=== PATIENT | male | born 1950 | race Caucasian/White ===

== ENCOUNTER 2019-05-17 07:53 | Outpatient (CLI) | payer MEDICARE ==
--- NOTE | 2019-05-17 09:53 | CT ---
LOW DOSE CT CHEST WITHOUT IV CONTRAST FOR LUNG CANCER SCREENING: HISTORY: Personal history of tobacco use. Shortness of breath. Atrial fibrillation. FINDINGS: Absence of IV contrast reduces the sensitivity of the exam, particularly for elevation of mediastinal , hilar and vascular structures. There are vascular calcifications without evidence of aneurysmal dilatation of the thoracic aorta. No pleural or pericardial effusions are seen. There are degenerative changes of the spine. A punctate calcified nodule is seen in the left lower lobe (image 163, series 2). No calcifie d nodules are seen. IMPRESSION: Lung-RADS category 2 - benign. RECOMMENDATIONS: Follow-up LDCT is recommended in 12 months. POS: OFF
== END 2019-05-17 07:54 | disposition home or self-care (01) ==
LOC: CT 07:53
PROVIDERS: ATTEND Family Medicine
DX: Z87.891 Personal history of nicotine dependence (principal); J44.9 Chronic obstructive pulmonary disease, unspecified
CPT/HCPCS: G0297

== ENCOUNTER 2020-09-04 09:59 | Outpatient (CLI) | payer MEDICARE ==
--- NOTE | 2020-09-04 10:28 | CT ---
EXAM: CT chest without contrast PROVIDED CLINICAL HISTORY: Personal history of nicotine dependence, low dose screening COMPARISON: 05/17/2019 FINDINGS: The heart, pericardium and great vessels are suboptimally evaluated in the absence of IV contrast mat erial. Vascular calcification including coronary calcium is demonstrated. There is no evidence for thoracic lymph node enlargement, with limitations due to lack of IV contrast material. The airway appears patent and of normal caliber proximally. There is stable subsegmental atelectatic change involving the lateral lingula. No concerning nodule is evident. No pleural fluid or pneumothorax apparent. The visualized portions of the upper abdomen demonstrate no significant abnormality. The osseous structures demonstrate no concerning lytic or blastic lesions. IMPRESSION: Lung RADS category 2-benign findings. Continue annual screening.
== END 2020-09-04 10:00 | disposition home or self-care (01) ==
LOC: BICCT 09:59
PROVIDERS: ATTEND Orthopaedic Surgery
DX: Z12.2 Encounter for screening for malignant neoplasm of respiratory organs (principal); Z87.891 Personal history of nicotine dependence
CPT/HCPCS: 71271

== ENCOUNTER 2020-10-31 12:30 | Inpatient (IN) | payer MEDICARE ==
[2020-10-31 13:57] LABS: Anion Gap 14 mmol/L (10-20); BUN (Urea Nitrogen) 16 mg/dL (8.4-25.7); Calc. Creatinine Clearance 0 mL/min (70-130); Calcium 9.6 mg/dL (7.8-10.44); Carbon Dioxide 29 mmol/L (23-31); Chloride 101 mmol/L (98-107); Glucose 103 mg/dL (80-115); Potassium 4.2 mmol/L (3.5-5.1); Sodium 140 mmol/L (136-145)
[2020-10-31 14:13] LABS: Hemoglobin 13.1 g/dL (13.5-17.5); Mean Corpuscular Hemoglobin 26.7 pg (27.0-33.0); Mean Corpuscular Volume 85.9 fl (81.2-95.1); Mean Platelet Volume 10.5 fl (7.4-10.4); Platelet Count 168 10x3/uL (150-450); RBC Distribution Width 15.9 % (11.5-14.5); Red Blood Cell (RBC) Count 4.91 10x6/uL (4.32-5.72); White Blood Cell (WBC) Count 8.7 10x3/uL (3.5-10.5)
[2020-10-31 15:01] LABS: INR-International Normal Ratio 1.1; PTT 57.7 sec (22.0-33.0); Prothrombin Time 11.5 sec (9.5-12.1)
[2020-11-01 13:08] LABS: SARS-CoV-2 PCR by NAA Not Detected (NotDetected)
[2020-11-05] MEDS ORDERED: Albumin 5% 500 ML ONE (06:25)
[2020-11-05] MEDS ORDERED: Norepinephrine 4 MG/4 ML VIAL ONE (06:35)
[2020-11-05] MEDS ORDERED: Nitroglycerin 50 MG/250 ML BOT 250 ML ONE (06:35)
[2020-11-05] MEDS ORDERED: Fentanyl 100 MCG/2 ML VIAL ONE (06:36)
[2020-11-05] MEDS ORDERED: Bupivacaine PF 0.5% 30 ML VIAL ONE (06:54)
[2020-11-05] MEDS ORDERED: Dexamethasone 4 mg/ml Vial ONE (06:54)
[2020-11-05] MEDS ORDERED: EPINEPHrine 1 MG/ML AMP ONE (06:54)
[2020-11-05] MEDS ORDERED: Heparin 10,000 UNITS/1 ML VIAL 30,000 UNITS in Sodium Chloride 0.9% 1,000 ML IVPB SCH (07:00)
[2020-11-05] MEDS ORDERED: Midazolam HCl 5 mg/5 ml Vial ONE (07:38)
[2020-11-05] MEDS ORDERED: Ketamine 50 MG/ML (10ML VIAL) ONE (07:39)
[2020-11-05] MEDS ORDERED: PROPOFOL 200 MG/20 ML VIAL ONE (07:40)
[2020-11-05] MEDS ORDERED: Vecuronium 10 MG VIAL ONE ×3 (07:40→07:41)
[2020-11-05] MEDS ORDERED: Aminocaproic Acid 5 GM/20 ML VIAL ONE (07:40)
[2020-11-05] MEDS ORDERED: Heparin 30,000 units/30 ml VIAL ONE (07:40)
[2020-11-05] MEDS ORDERED: Heparin 5,000 UNITS/ML VIAL ONE (07:40)
[2020-11-05] MEDS ORDERED: Thrombin 5000 UNITS/5 ML VIAL ONE (07:40)
[2020-11-05] MEDS ORDERED: Rocuronium Bromide 10 MG/ML (10ML VIAL) ONE (07:40)
[2020-11-05] MEDS ORDERED: Cardioplegic Soln 1,000 ML BAG ONE (07:40)
[2020-11-05] MEDS ORDERED: Protamine Sulfate 250 MG/25 ML VIAL ONE (07:40)
[2020-11-05] MEDS ORDERED: Papaverine 60 MG/2 ML VIAL ONE (07:40)
[2020-11-05] MEDS ORDERED: Lidocaine 2% PF 100 mg/5 ml Syringe ONE (07:40)
[2020-11-05] MEDS ORDERED: Potassium Chloride 60 MEQ/30 ML VIAL ONE (07:40)
[2020-11-05] MEDS ORDERED: Sodium Bicarb 50 MEQ/50 ML Abboject 8.4% SYRINGE ONE (07:40)
[2020-11-05] MEDS ORDERED: Magnesium Sulfate 1 GM/2 ML VIAL ONE (07:40)
[2020-11-05] MEDS ORDERED: Lidocaine 1% PF 5 ML VIAL ONE (07:40)
[2020-11-05] MEDS ORDERED: Mannitol 12.5 GM/50 ML ONE (07:40)
[2020-11-05] MEDS ORDERED: Succinylcholine 200 MG/10 ml SYRINGE FS ONE (07:40)
[2020-11-05] MEDS ORDERED: Calcium Chloride 1 GM/10 ML Abboject SYRINGE ONE (07:40)
[2020-11-05] MEDS ORDERED: Gentamicin 80 MG/2 ML VIAL ONE (08:10)
[2020-11-05] MEDS ORDERED: PHENYLEPHRINE-NS 100 MCG/ML 10 ML SYRINGE ONE ×3 (09:28→11:40)
[2020-11-05] MEDS ORDERED: Insulin Regular 300 UNITS/3 ML VIAL ONE (09:55)
[2020-11-05] MEDS ORDERED: Hetastarch 6% 500 ML 500 ML IVPB PRN (12:01)
[2020-11-05] MEDS ORDERED: Bisacodyl 5 MG TAB PO PRN (12:01)
[2020-11-05] MEDS ORDERED: Morphine 2 MG/ML VIAL SLOW IVP PRN (12:01)
[2020-11-05] MEDS ORDERED: Nitroglycerin 50 MG/250 ML BOT 250 ML IVPB PRN (12:01)
[2020-11-05] MEDS ORDERED: Potassium Chloride 20 MEQ/100 ML PREMIX BAG IVPB PRN (12:01)
[2020-11-05] MEDS ORDERED: Mag-Al 1200 mg/1200 mg/30 ML UDCUP PO PRN (12:01)
[2020-11-05] MEDS ORDERED: Guaifenesin DM 100-10/5 ML UDCUP PO PRN (12:01)
[2020-11-05] MEDS ORDERED: traMADol HCl 50 MG TAB PO PRN ×2 (12:01)
[2020-11-05] MEDS ORDERED: D5 1/2 NS w/20 mEq KCL 1,000 ML IV SCH (12:01)
[2020-11-05] MEDS ORDERED: Norepinephrine 8 MG/0.9% NS 250 ML IVPB PRN (12:01)
[2020-11-05] MEDS ORDERED: Fentanyl 100 MCG/2 ML VIAL SLOW IVP PRN ×2 (12:01)
[2020-11-05] MEDS ORDERED: Magnesium 2 GM/50 ML 2 GM in Premix Bag 1 BAG IVPB SCH (12:01)
[2020-11-05] MEDS ORDERED: Ondansetron PF 4 MG/2 ML Vial IVP PRN (12:01)
[2020-11-05] MEDS ORDERED: DOPamine 400 MG/D5W 250 ML 250 ML IVPB PRN (12:01)
[2020-11-05] MEDS ORDERED: Bisacodyl 10 MG SUPP PR PRN (12:01)
[2020-11-05] MEDS ORDERED: hydrALAZINE 20 MG/ML VIAL SLOW IVP PRN (12:01)
[2020-11-05] MEDS ORDERED: Norepinephrine 8 MG/0.9% NS 250 ML ONE (12:03)
[2020-11-05 12:12] LABS: Base Excess (BEa) 1.7 mEq/L (-2.0 to +3.0); CO2 Tension 45.4 mmHg (35.0-45.0); Calcium, Ionized (arterial) 1.19 mmol/L (1.12-1.30); Carboxyhemoglobin (COHb) 0.3 gm% (0.0-3.0); Hemoglobin (Hb) 11.2 g/dL (14.0-18.0); O2 Tension (PaO2), arterial 303.3 mmHg (> 70.0); Potassium - ABG Lab 3.59 mmol/L (3.70-5.30); Puncture Site Arterial Line; pH, Arterial 7.39 (7.35-7.45)
[2020-11-05] MEDS ORDERED: Dextrose 5% in Water 1,000 ML IV PRN (12:15)
[2020-11-05] MEDS ORDERED: Dextrose 50% Abboject 50 ML SYRINGE SLOW IVP PRN (12:15)
[2020-11-05 12:18] LABS: #Eosinphils 0.1 thou/uL (0.0-0.7); #Lymphocytes 1.2 thou/uL (1.20-3.40); #Monocytes 1.5 thou/uL (0.11-0.59); #Neutrophils 15.3 thou/uL (1.40-6.50); %Basophils 0.3 % (0.0-1.0); %Eosinophils 0.7 % (0.0-10.0); %Lymphocytes 6.6 % (21.0-51.0); %Monocytes 8.3 % (0.0-10.0); %Neutrophils 84.1 % (42.0-75.0); Hemoglobin 10.8 g/dL (14.0-18.0); Mean Corpuscular HGB CONC 32.6 g/dL (32.0-36.0); Mean Corpuscular Hemoglobin 28.2 pg (27.0-31.0); Mean Corpuscular Volume 86.5 fL (78.0-98.0); Mean Platelet Volume 9.3 fL (7.4-10.4); Platelet Count 103 thou/uL (130-400); RBC Distribution Width 14.6 % (11.5-14.5); Red Blood Cell (RBC) Count 3.83 mill/uL (4.70-6.10); White Blood Cell (WBC) Count 18.2 thou/uL (4.8-10.8)
[2020-11-05 12:24] LABS: INR-International Normal Ratio 1.4; PTT 34.4 sec (22.9-36.1); Prothrombin Time 17.1 sec (12.0-14.7)
[2020-11-05 12:34] VITALS: BMI 45.1
[2020-11-05 12:39] LABS: Anion Gap 12 mmol/L (10-20); BUN (Urea Nitrogen) 17 mg/dL (8.4-25.7); Calc. Creatinine Clearance 145 mL/min (70-130); Calcium 8.3 mg/dL (7.8-10.44); Carbon Dioxide 24 mmol/L (23-31); Chloride 110 mmol/L (98-107); Glucose 105 mg/dL (80-115); Potassium 3.7 mmol/L (3.5-5.1)
[2020-11-05 12:44] LABS: Sodium 142 mmol/L (136-145)
[2020-11-05] MEDS ORDERED: Ketorolac Tromethamine 30 MG/ML VIAL ONE (12:44)
[2020-11-05] MEDS: Ketorolac Tromethamine 30 MG/ML VIAL IVP SCH ×3 (12:45→23:49)
[2020-11-05] MEDS ORDERED: Gentamicin 80 MG/2 ML VIAL IVPB SCH (14:00)
[2020-11-05] MEDS: CEFAZOLIN 2 GM in Premix Bag 1 BAG IVPB SCH ×2 (15:02→23:02)
[2020-11-05 15:47] LABS: Actual Bicarbonate (HCO3a) 25.7 mEq/L (22-28); CO2 Tension 45.9 mmHg (35.0-45.0); Calcium, Ionized (arterial) 1.16 mmol/L (1.12-1.30); Carboxyhemoglobin (COHb) 0.4 gm% (0.0-3.0); Hemoglobin (Hb) 12.1 g/dL (14.0-18.0); O2 Tension (PaO2), arterial 78.3 mmHg (> 70.0); Potassium - ABG Lab 3.82 mmol/L (3.70-5.30); Puncture Site Arterial Line; pH, Arterial 7.37 (7.35-7.45)
[2020-11-05 15:48] LABS: ALV-art Gradient 149.525 mmHg (0-20)
[2020-11-05] MEDS: Gentamicin Sulfate 80 MG in Premix Bag 1 BAG IVPB SCH ×2 (16:14→23:50)
[2020-11-05 17:40] LABS: Hemoglobin 11.3 g/dL (14.0-18.0)
[2020-11-05] MEDS: Insulin Regular 300 UNITS/3 ML VIAL SC PRN ×2 (17:42→21:12)
[2020-11-05 17:56] LABS: Potassium 4.1 mmol/L (3.5-5.1)
[2020-11-05] MEDS: Atorvastatin Calcium 40 MG TAB PO SCH (20:59)
[2020-11-05] MEDS: Famotidine/PF 20 mg/2ml Vial SLOW IVP SCH (21:00)
[2020-11-06 04:43] LABS: #Lymphocytes 1.3 thou/uL (1.20-3.40); #Neutrophils 11.7 thou/uL (1.40-6.50); %Basophils 0.1 % (0.0-1.0); %Lymphocytes 8.9 % (21.0-51.0); %Monocytes 7.3 % (0.0-10.0); %Neutrophils 83.7 % (42.0-75.0); Anion Gap 11 mmol/L (10-20); BUN (Urea Nitrogen) 19 mg/dL (8.4-25.7); Calc. Creatinine Clearance 135 mL/min (70-130); Calcium 8.1 mg/dL (7.8-10.44); Carbon Dioxide 27 mmol/L (23-31); Chloride 107 mmol/L (98-107); Glucose 125 mg/dL (80-115); Hemoglobin 10.2 g/dL (14.0-18.0); Mean Corpuscular HGB CONC 33.1 g/dL (32.0-36.0); Mean Corpuscular Hemoglobin 28.8 pg (27.0-31.0); Mean Corpuscular Volume 86.8 fL (78.0-98.0); Mean Platelet Volume 9.3 fL (7.4-10.4); Platelet Count 111 thou/uL (130-400); Potassium 3.7 mmol/L (3.5-5.1); RBC Distribution Width 14.6 % (11.5-14.5); Red Blood Cell (RBC) Count 3.54 mill/uL (4.70-6.10); Sodium 141 mmol/L (136-145)
[2020-11-06] MEDS: Ketorolac Tromethamine 30 MG/ML VIAL IVP SCH ×4 (06:35→22:57)
[2020-11-06] MEDS: CEFAZOLIN 2 GM in Premix Bag 1 BAG IVPB SCH (06:36)
[2020-11-06] MEDS: Gentamicin Sulfate 80 MG in Premix Bag 1 BAG IVPB SCH (07:39)
[2020-11-06] MEDS: Aspirin 325 MG TAB PO SCH (08:14)
[2020-11-06] MEDS: Magnesium 2 GM/50 ML 2 GM in Premix Bag 1 BAG IVPB SCH (08:15)
[2020-11-06] MEDS: Famotidine/PF 20 mg/2ml Vial SLOW IVP SCH (08:15)
[2020-11-06] MEDS ORDERED: diphenhydrAMINE 25 MG CAP PO PRN (08:46)
[2020-11-06] MEDS ORDERED: Mineral Oil ENEMA PR PRN (08:46)
[2020-11-06] MEDS ORDERED: Zolpidem Tartrate 5 MG TAB PO PRN (08:46)
[2020-11-06] MEDS ORDERED: Nitroglycerin 0.4 MG TAB (25 Tab Bottle) SL PRN (08:46)
[2020-11-06] MEDS ORDERED: Guaifenesin DM 100-10/5 ML UDCUP PO PRN (08:46)
[2020-11-06] MEDS ORDERED: Mag-Al 1200 mg/1200 mg/30 ML UDCUP PO PRN (08:46)
[2020-11-06] MEDS ORDERED: Bisacodyl 10 MG SUPP PR PRN (08:46)
[2020-11-06] MEDS ORDERED: Bisacodyl 5 MG TAB PO PRN (08:46)
[2020-11-06] MEDS ORDERED: Carvedilol 6.25 MG TAB PO SCH ×2 (09:00→17:00)
[2020-11-06] MEDS ORDERED: Potassium Chloride 10 MEQ TAB PO SCH (09:00)
[2020-11-06] MEDS: Furosemide 40 MG TAB PO SCH (10:15)
[2020-11-06] MEDS: Atorvastatin Calcium 40 MG TAB PO SCH (21:01)
[2020-11-06] MEDS: Acetaminophen 325 MG TAB PO PRN (21:01)
[2020-11-06] MEDS ORDERED: Senokot S 8.6-50 MG TAB PO PRN (22:29)
[2020-11-07] MEDS: Ketorolac Tromethamine 30 MG/ML VIAL IVP SCH ×4 (06:16→23:56)
[2020-11-07] MEDS ORDERED: Milk Of Magnesia 30 ML UDCUP PO PRN (06:26)
[2020-11-07] MEDS ORDERED: Magnesium Citrate 300 ML BOT PO PRN (06:26)
[2020-11-07] MEDS: Potassium Chloride 10 MEQ TAB PO SCH (08:35)
[2020-11-07] MEDS: Carvedilol 6.25 MG TAB PO SCH ×2 (08:36→16:34)
[2020-11-07] MEDS: Furosemide 40 MG TAB PO SCH (08:36)
[2020-11-07] MEDS: Aspirin 325 MG TAB PO SCH (08:36)
[2020-11-07] MEDS: Magnesium 2 GM/50 ML 2 GM in Premix Bag 1 BAG IVPB SCH (08:37)
[2020-11-07] MEDS: Hydrochlorothiazide 25 MG TAB PO SCH (08:37)
[2020-11-07] MEDS: Ubidecarenone 50 MG CAP PO SCH (08:44)
[2020-11-07] MEDS: Acetaminophen 325 MG TAB PO PRN ×2 (08:48→22:05)
[2020-11-07] MEDS: Atorvastatin Calcium 40 MG TAB PO SCH (22:04)
[2020-11-08] MEDS: Ketorolac Tromethamine 30 MG/ML VIAL IVP SCH (05:41)
[2020-11-08 08:12] VITALS: BP 126/63; TEMP 97.8
[2020-11-08] MEDS: Aspirin 325 MG TAB PO SCH (09:02)
[2020-11-08] MEDS: Hydrochlorothiazide 25 MG TAB PO SCH (09:03)
[2020-11-08] MEDS: Ubidecarenone 50 MG CAP PO SCH (09:03)
[2020-11-08] MEDS: Furosemide 40 MG TAB PO SCH (09:04)
[2020-11-08] MEDS: Carvedilol 6.25 MG TAB PO SCH (09:04)
[2020-11-08] MEDS: Potassium Chloride 10 MEQ TAB PO SCH (09:06)
[2020-11-19 14:41] LABS: Actual Bicarbonate (HCO3a) 20.6 mEq/L (22-28); Analyzer IN Cardio OR; Base Excess (BEa) -2.8 mEq/L (-2.0 to +3.0); CO2 Tension 31.2 mmHg (35.0-45.0); Calcium, Ionized (arterial) 0.99 mmol/L (1.12-1.30); Carboxyhemoglobin (COHb) 0.5 gm% (0.0-3.0); Hemoglobin (Hb) 10.5 g/dL (14.0-18.0); O2 Tension (PaO2), arterial 465.4 mmHg (> 70.0); Potassium - ABG Lab 3.17 mmol/L (3.70-5.30); pH, Arterial 7.44 (7.35-7.45)
[2020-11-19 14:43] LABS: Actual Bicarbonate (HCO3a) 22.1 mEq/L (22-28); Analyzer IN Cardio OR; CO2 Tension 30.3 mmHg (35.0-45.0); Carboxyhemoglobin (COHb) 0.3 gm% (0.0-3.0); Hemoglobin (Hb) 8.4 g/dL (14.0-18.0); O2 Tension (PaO2), arterial 431.8 mmHg (> 70.0); Potassium - ABG Lab 3.39 mmol/L (3.70-5.30); pH, Arterial 7.48 (7.35-7.45)
[2020-11-19 14:43] LABS: Actual Bicarbonate (HCO3a) 25.9 mEq/L (22-28); Analyzer IN Cardio OR; Base Excess (BEa) 3.6 mEq/L (-2.0 to +3.0); Calcium, Ionized (arterial) 1.04 mmol/L (1.12-1.30); Carboxyhemoglobin (COHb) 0.3 gm% (0.0-3.0); O2 Tension (PaO2), arterial 418.8 mmHg (> 70.0); Potassium - ABG Lab 4.52 mmol/L (3.70-5.30); pH, Arterial 7.54 (7.35-7.45)
[2020-11-19 14:45] LABS: Actual Bicarbonate (HCO3a) 23.2 mEq/L (22-28); Analyzer IN Cardio OR; Base Excess (BEa) -0.2 mEq/L (-2.0 to +3.0); CO2 Tension 33.5 mmHg (35.0-45.0); Calcium, Ionized (arterial) 1.04 mmol/L (1.12-1.30); Carboxyhemoglobin (COHb) 0.2 gm% (0.0-3.0); Hemoglobin (Hb) 11.3 g/dL (14.0-18.0); O2 Tension (PaO2), arterial 382.7 mmHg (> 70.0); Potassium - ABG Lab 3.34 mmol/L (3.70-5.30); pH, Arterial 7.46 (7.35-7.45)
[2020-11-19 14:47] LABS: Actual Bicarbonate (HCO3a) 26.2 mEq/L (22-28); Analyzer IN Cardio OR; Base Excess (BEa) 2.2 mEq/L (-2.0 to +3.0); CO2 Tension 38.6 mmHg (35.0-45.0); Calcium, Ionized (arterial) 1.02 mmol/L (1.12-1.30); Carboxyhemoglobin (COHb) 0.3 gm% (0.0-3.0); Hemoglobin (Hb) 9.2 g/dL (14.0-18.0); O2 Tension (PaO2), arterial 393.8 mmHg (> 70.0); Potassium - ABG Lab 4.26 mmol/L (3.70-5.30); pH, Arterial 7.45 (7.35-7.45)
[2020-11-19 14:48] LABS: Actual Bicarbonate (HCO3a) 23.6 mEq/L (22-28); Analyzer IN Cardio OR; CO2 Tension 38.7 mmHg (35.0-45.0); Calcium, Ionized (arterial) 1.07 mmol/L (1.12-1.30); Carboxyhemoglobin (COHb) 0.3 gm% (0.0-3.0); O2 Tension (PaO2), arterial 485.8 mmHg (> 70.0); Potassium - ABG Lab 3.22 mmol/L (3.70-5.30)
[2020-11-19 14:48] LABS: Puncture Site Arterial Line
[2020-11-19 14:48] LABS: Puncture Site Arterial Line
[2020-11-19 14:49] LABS: Puncture Site Arterial Line
[2020-11-19 14:49] LABS: Puncture Site Arterial Line
[2020-11-19 14:50] LABS: Puncture Site Arterial Line
[2020-11-19 14:51] LABS: Puncture Site Arterial Line
== END 2020-11-08 10:45 | disposition home or self-care (01) | DRG 236 ==
LOC: SURG A 11-05 05:54 → CCU 11-05 11:37 → 2NO 11-06 08:41
PROVIDERS: ADMIT Thoracic Surgery (Cardiothoracic Vascular Surgery); ATTEND Thoracic Surgery (Cardiothoracic Vascular Surgery)
PROC: 02100Z9 Bypass Coronary Artery, One Artery from Left Internal Mammary, Open Approach (ICD-10-PCS; principal; 2020-11-05)
PROC: 021209W Bypass Coronary Artery, Three Arteries from Aorta with Autologous Venous Tissue, Open Approach (ICD-10-PCS; 2020-11-05)
PROC: 06BQ0ZZ Excision of Left Saphenous Vein, Open Approach (ICD-10-PCS; 2020-11-05)
PROC: 5A1221Z Performance of Cardiac Output, Continuous (ICD-10-PCS; 2020-11-05)
PROC: 02L70ZK Occlusion of Left Atrial Appendage, Open Approach (ICD-10-PCS; 2020-11-05)
DX: I25.10 Atherosclerotic heart disease of native coronary artery without angina pectoris (principal); Z68.42 Body mass index [BMI] 45.0-49.9, adult; I48.20 Chronic atrial fibrillation, unspecified; E66.01 Morbid (severe) obesity due to excess calories; I10 Essential (primary) hypertension; J44.9 Chronic obstructive pulmonary disease, unspecified; G47.30 Sleep apnea, unspecified; E78.2 Mixed hyperlipidemia; Z20.822 Contact with and (suspected) exposure to COVID-19; Z79.01 Long term (current) use of anticoagulants; Z79.02 Long term (current) use of antithrombotics/antiplatelets; Z85.47 Personal history of malignant neoplasm of testis; Z92.3 Personal history of irradiation; Z95.5 Presence of coronary angioplasty implant and graft
CPT/HCPCS: 36416; 36430; 71045; 80048; 82805; 85025; 85027; 85610; 85730; 86850; 86900; 86901; 87635; 93005; 93010; 93798; 94002; 94150; 94640; J0171; J0690; J1100; J1580; J1642; J1644; J1815; J1885; J2001; J2150; J2250; J2440; J2704; J2720; J3010; J3370; J3475; J3480; J7050; J7620; P9045; S0017; S0020; S0028; U0003; U0005

== ENCOUNTER 2020-10-31 12:34 | Outpatient (CLI) | payer MEDICARE | END 2020-10-31 12:35 | disposition home or self-care (01) | LOC: LABBT 12:34 | PROVIDERS: ATTEND Thoracic Surgery (Cardiothoracic Vascular Surgery) | DX: Z01.818 Encounter for other preprocedural examination (principal); Z20.822 Contact with and (suspected) exposure to COVID-19; I25.10 Atherosclerotic heart disease of native coronary artery without angina pectoris | CPT/HCPCS: 71046; 80048; 85027; 85610; 85730; 86850; 86900; 86901; U0003; U0005; 87635 ==